=== PATIENT | male | born 1940 | race Caucasian/White ===

== ENCOUNTER → 2017-03-03 | Outpatient (CLI) | payer MEDICARE, OTHER ==
[~2017-03-03] MED LIST: ASP81TEC PO; BMSB30 PO; CLOP75TA PO; DICY20TA57 PO; FAMO20TA5 PO; FISH1CAP15 PO; HYDR1TAB PO; NITR0.4T12 SL; ONDA8TAB9 PO; RMP5C PO; SIMV20TA3 PO; SUSTENEX PO
--- NOTE | 2017-03-05 10:08 | ECHOCARDIOGRAPHY REPORT ---
PROCEDURE PHYSICIAN: BRONSON VALENZUELA DATE OF PROCEDURE: 03/03/2017 TWO DIMENSIONAL ECHOCARDIOGRAM REPORT PRIMARY PHYSICIAN: Dr. Taylor OTHER PHYSICIAN: Dr. Valenzuela REFERRING PHYSICIAN: ORDERING PHYSICIAN: Anjelica Mott APRN INDICATION FOR THE PROCEDURE: 1. Coronary artery disease. 2. Left bundle branch block MEASUREMENTS DERIVED VALUES LV DIAMETER (LAX) NORMALS NORMALS Diastolic 4.7 (3.6-5.2) Eject. Fract. (60%+/-6%) Systolic (2.3-3.9) Diastolic Vol. % Shortening (0.22-0.42) Systolic Vol. Aortic Root 3.2 IVS THICKNESS Diastolic 1 (0.6-1.1) LVPW THICKNESS Diastolic 1.1 (0.6-1.1) LA DIAMETER Systolic 3.9 (2.1-3.7) DESCRIPTION: Two-dimensional echocardiography shows well preserved global left ventricular systolic function with an ejection fraction of approximately 50%. There appears to be distal septal/localized apical hypokinesis. Aortic, mitral and tricuspid valve leaflets show good leaflet excursion. There is no significant pericardial effusion. Doppler imaging shows trivial, mitral and tricuspid regurgitation. There is no Doppler evidence of significant valvular stenosis. There appears to be mild aortic valve sclerosis and calcification. There is no Doppler evidence of any significant valvular stenosis. Pulmonary artery systolic pressure is estimated to be approximately 25 mmHg. Good subcostal views are not obtained. CONCLUSIONS: 1. Well preserved global left ventricular systolic function with an ejection fraction of approximately 50%. 2. Distal septal/apical localized hypokinesis. 3. Trivial to mild mitral and tricuspid regurgitation. 4. Mild aortic valve sclerosis without evidence of aortic stenosis. 5. Pulmonary artery systolic pressure is estimated approximately 25 mmHg. Job ID: [id number] Dictated Date: 03/04/2017 15:08:41 Power And Recovery Shift Engineer Date: 03/05/2017 10:02:36 / enio
== END ==
LOC: CARD 10:22
PROVIDERS: ATTEND Nurse Practitioner Family
DX: I25.10 Atherosclerotic heart disease of native coronary artery without angina pectoris (principal); I44.69 Other fascicular block; I65.23 Occlusion and stenosis of bilateral carotid arteries; R00.2 Palpitations
CPT/HCPCS: 93306

== ENCOUNTER → 2017-03-04 | Outpatient (CLI) | payer MEDICARE, OTHER ==
[~2017-03-04] VITALS: Ht 185.4 cm; Wt 94.3 kg
[~2017-03-04] MED LIST changes: +CATHETER FLUSH 10 ML SYR IV PRN; +REGADENOSON 0.4 MG/5 ML SYR (LEXISCAN) IV ONE; +meTOprolol 5 MG/5 ML (LOPRESSOR) VIAL IV ONE
[2017-03-04 09:23] VITALS: BP 116/74
[2017-03-04 09:37] VITALS: BP 127/70
[2017-03-04 09:39] VITALS: BP 146/77
[2017-03-04 09:41] VITALS: BP 132/88
--- NOTE | 2017-03-05 07:39 | STRESS TEST ---
PROCEDURE PHYSICIAN: BRONSON VALENZUELA DATE OF PROCEDURE: 03/04/2017 RESTING AND POST REGADENOSON TECHNETIUM 99M TETROFOSMIN SPECT CT IMAGING: ORDERING PHYSICIAN: Anjelica Mott APRN PRIMARY PHYSICIAN: Dr. Taylor. OTHER PHYSICIAN: Dr. Valenzuela CLINICAL DIAGNOSIS: 1. Coronary artery disease. 2. Left bundle branch block. Baseline images were carried out after injection of 10.7 mCi of technetium 99m tetrofosmin. This was followed by 0.4 mg of regadenoson and 28.9 mCi of technetium 99m tetrofosmin for stress imaging. The electrocardiogram showed sinus rhythm with left bundle branch block at baseline and it did not change significantly with the regadenoson infusion. He noted heavy feeling in the legs and abdominal cramping after regadenoson infusion, which resolved in a few minutes. Review of images at rest and following stress, indicates a small fixed apical perfusion defect. Gated images show a localized apical hypokinesis to akinesis. Left ventricular ejection fraction is calculated to be 52%. Left ventricular end-diastolic volume 92 mL. TID is absent (1.04). CONCLUSIONS: 1. The study indicates a small apical infarction without ischemia. 2. Localized apical hypokinesis to akinesis. 3. Well preserved global left ventricular systolic function and ejection fraction of 52%. Job ID: [id number] Dictated Date: 03/04/2017 13:44:35 Parts Room Clerk Date: 03/05/2017 07:36:00 / enio
== END ==
LOC: CARD 07:00
PROVIDERS: ATTEND Nurse Practitioner Family
DX: I25.10 Atherosclerotic heart disease of native coronary artery without angina pectoris (principal); I44.69 Other fascicular block; I65.23 Occlusion and stenosis of bilateral carotid arteries; R00.2 Palpitations
CPT/HCPCS: 78452; 93017

== ENCOUNTER → 2018-03-24 | Outpatient (CLI) | payer OTHER, MEDICARE ==
[~2018-03-24] MED LIST changes: +ACET325T49 PO; +ASPI-983 PO; +BISM262O27 PO; +CLOP75TA28 PO; +FAMO1TAB21 PO; +LORA10TA76 PO; +NAPR220T66 PO; +NITR0.4T39 SL; +OMG1KC PO; +RAMI2.5C PO; +RAMI5CAP PO; +SIMV10TA3 PO; -meTOprolol 5 MG/5 ML (LOPRESSOR) VIAL IV ONE
[2018-03-24 08:57] VITALS: BP 124/72
[2018-03-24 09:07] VITALS: BP 121/71
--- NOTE | 2018-03-25 13:56 | STRESS TEST ---
DATE OF SERVICE: 03/24/2018 RESTING AND POST REGADENOSON TECHNETIUM-99M TETROFOSMIN SPECT CT IMAGING ORDERING PHYSICIAN: CRISTIAN Foster. PRIMARY PHYSICIAN: Francesco Taylor DO. OTHER PHYSICIAN: Luis Valenzuela MD, MA, FACP, FACC. CLINICAL DIAGNOSES: Coronary artery disease, shortness of breath, and chest discomfort. Baseline images were carried out after injection of 10.85 mCi of technetium-99m Tetrofosmin. This was followed by 0.4 mg regadenoson and 30.4 mCi technetium-99m tetrofosmin for stress imaging. The electrocardiogram showed sinus rhythm with left bundle branch block. The electrocardiogram did not change significantly with the regadenoson infusion. Review of images at rest and following stress indicates an apical perfusion defect which is partially transient. There appears to be localized apical hypokinesis. Left ventricular ejection fraction is calculated to be 47%. Left ventricular end diastolic volume is 87 mL. TID is absent (1.1). CONCLUSIONS: 1. Apical infarction with a small to moderate amount of adela-infarct ischemia. 2. Apical hypokinesis. 3. Left ventricular ejection fraction is calculated to be 47%. Job ID: [id number] DocumentID: [id number] Dictated Date: 03/25/2018 08:37:09 Executive Director Date: 03/25/2018 13:55:28 Dictated By: LUIS VALENZUELA MD, MA, FACP, FACC,
== END ==
LOC: CARD 07:08
PROVIDERS: ATTEND Nurse Practitioner Family
DX: R06.02 Shortness of breath (principal); R07.89 Other chest pain
CPT/HCPCS: 78452; 93017

== ENCOUNTER 2018-04-07 07:55 | Day surgery (SDC) | payer MEDICARE, OTHER ==
[2018-04-07] VITALS (14 sets, daily range): BP systolic 106–150; BP diastolic 62–88
[~2018-04-07] VITALS: Ht 185.4 cm; Wt 98.9 kg
[~2018-04-07 07:55] MED LIST changes: -ACET325T49 PO; -ASPI-983 PO; -BISM262O27 PO; -CATHETER FLUSH 10 ML SYR IV PRN; -CLOP75TA28 PO; -FAMO1TAB21 PO; -LORA10TA76 PO; -NAPR220T66 PO; -NITR0.4T39 SL; -OMG1KC PO; -RAMI2.5C PO; -RAMI5CAP PO; -REGADENOSON 0.4 MG/5 ML SYR (LEXISCAN) IV ONE; -SIMV10TA3 PO
[2018-04-07] MEDS ORDERED: LIDOCAINE 1% INJ 20 ML 20 ML VIAL ONE (07:58)
[2018-04-07] MEDS ORDERED: NS IV 1000 ML 3,000 ML ONE (07:58)
[2018-04-07] MEDS ORDERED: NS IV 1000 ML 1,000 ML IV SCH (08:15)
[2018-04-07 08:37] LABS: HEMOGLOBIN 15.8 G/DL (13.3-17.7); MEAN PLATELET VOLUME 10.9 FL (7.4-10.4); RED BLOOD COUNT 4.85 10^6/uL (4.35-5.85); RED CELL DISTRIBUTION WIDTH 13.2 % (10.0-14.5); WHITE BLOOD COUNT 4.6 10^3/uL (4.3-11.0)
[2018-04-07] MEDS ORDERED: HEParin 1000 UNIT/ML (10ML VIAL) FOR BOLUS ONE (08:43)
[2018-04-07 08:47] LABS: INR 1.1 (0.8-1.4); PROTHROMBIN TIME PATIENT 14.1 SEC (12.2-14.7)
[2018-04-07] MEDS ORDERED: NAPR220T66 PO (08:53)
[2018-04-07] MEDS ORDERED: NITR0.4T39 SL (08:53)
[2018-04-07] MEDS ORDERED: BISM262O27 PO (08:53)
[2018-04-07] MEDS ORDERED: SIMV10TA3 PO (08:53)
[2018-04-07] MEDS ORDERED: FAMO1TAB21 PO (08:53)
[2018-04-07] MEDS ORDERED: LORA10TA76 PO (08:53)
[2018-04-07] MEDS ORDERED: RAMI5CAP PO (08:53)
[2018-04-07] MEDS ORDERED: ASPI-983 PO (08:53)
[2018-04-07] MEDS ORDERED: OMG1KC PO (08:53)
[2018-04-07 08:55] LABS: ALANINE AMINOTRANSFERASE 30 U/L (0-55); ALBUMIN 4.3 GM/DL (3.2-4.5); ALKALINE PHOSPHATASE 89 U/L (40-136); BILIRUBIN,TOTAL 0.8 MG/DL (0.1-1.0); BUN/CREATININE RATIO 21; CALCIUM 9.5 MG/DL (8.5-10.1); CARBON DIOXIDE 24 MMOL/L (21-32); CHLORIDE 106 MMOL/L (98-107); CHOLESTEROL 104 MG/DL (< 200); CREATININE SERUM 1.04 MG/DL (0.60-1.30); GFR ESTIMATED > 60; GLUCOSE 110 MG/DL (70-105); HDL CHOLESTEROL 38 MG/DL (40-60); POTASSIUM 4.2 MMOL/L (3.6-5.0); SODIUM 140 MMOL/L (135-145); TOTAL PROTEIN 7.1 GM/DL (6.4-8.2); TRIGLYCERIDES 62 MG/DL (<150); VLDL CHOLESTEROL 12 MG/DL (5-40)
[2018-04-07] MEDS ORDERED: RAMI2.5C PO (08:58)
[2018-04-07] MEDS ORDERED: diphenhydrAMINE 50 MG/ML INJ (BENADRYL) ONE (09:19)
[2018-04-07] MEDS ORDERED: MIDAZOLAM 5 MG/5 ML (VERSED) VIAL ONE (09:19)
[2018-04-07] MEDS ORDERED: fentaNYL INJECTION 100 MCG/2 ML AMP ONE (09:19)
[2018-04-07] MEDS ORDERED: EPTIFIBATIDE BOLUS 20 ML IV ONE (10:12)
[2018-04-07] MEDS ORDERED: NITRO DRIP 25000 MCG/D5W 250 ML IV ONE (10:17)
--- OUTSIDE RECORDS SUMMARY | 2018-04-07 10:29 | XMS REPORT | Continuity of Care Document ---
Author Author [facility] Organization [facility] Address Unknown Phone Unavailable Allergies Active Description Code Type Severity Reaction Onset Reported/Identified Relationship to Patient Clinical Status Yes NKANo Known Allergies NKA Miscellaneous Allergy Unknown N/A 08/28/2006 Yes Beta-Blockers (Beta-Adrenergic Bloc [id number] Drug Allergy Unknown N/A Medications There is no data. Problems Date Dx Coded Attending Type Code Diagnosis Diagnosed By 08/11/2012 Ot 272.4 HYPERLIPIDEMIA NEC/NOS 08/11/2012 Ot 414.01 CORONARY ATHEROSCLEROSIS OF [place] CORON 08/11/2012 Ot 426.3 LEFT BB BLOCK NEC 08/11/2012 Ot 433.10 CAROTID ARTERY OCCLUSION W O CEREBRAL IN 08/11/2012 Ot 719.41 JOINT PAIN- SHLDER 08/11/2012 Ot V45.82 PERCUTANEOUS TRANSLUM CORON ANGIOPLASTY 08/11/2012 Ot V58.63 LONG-TERM( CURRENT)USE OF ANTIPLATELET/AN 08/11/2012 Ot V58.66 LONG-TERM ( CURRENT) USE OF ASPIRIN 08/11/2012 Ot V58.69 OTH MED,LT, CURRENT USE 11/19/2012 Ot 574.20 CHOLELITHIASIS NOS 11/19/2012 Ot 789.01 ABDOMINAL PAIN, RIGHT UPPER QUADRANT 12/03/2012 Ot 574.10 CHOLELITH W CHOLECYS NEC 02/17/2015 BAIMA, LIZ L [employer] Ot 272.4 02/17/2015 BAIMA, LIZ L [employer] Ot 414.00 02/17/2015 BAIMA, LIZ L [employer] Ot 447.9 02/17/2015 BAIMA, LIZ L [employer] Ot 786.59 02/17/2015 BAIMA, LIZ L [employer] Ot V58.69 02/20/2015 BAIMA, LIZ L [employer] Ot 272.4 02/20/2015 BAIMA, LIZ L [employer] Ot 414.00 02/20/2015 BAIMA LIZ L [employer] Ot 272.4 02/20/2015 BAIMA, LIZ L [employer] Ot 414.00 02/20/2015 BAIMA, LIZ L [employer] Ot 272.4 02/20/2015 BAIMA, LIZ L [employer] Ot 414.00 06/28/2015 BAIMA, LIZ L [employer] Ot 272.4 06/28/2015 BAIMA, LIZ L [employer] Ot 414.00 07/12/2015 BAIMA, LIZ L [employer] Ot 272.4 07/12/2015 BAIMA, LIZ L [employer] Ot 414.00 07/28/2015 BAIMA, LIZ L [employer] Ot 272.4 07/28/2015 BAIMA, LIZ L [employer] Ot 414.00 10/07/2016 Ot 272.4 HYPERLIPIDEMIA NEC/NOS 10/07/2016 Ot 414.01 CORONARY ATHEROSCLEROSIS OF [place] CORON 10/07/2016 Ot V58.69 OTH MED,LT, CURRENT USE 10/07/2016 Ot 272.4 HYPERLIPIDEMIA NEC/NOS 10/07/2016 Ot 414.01 CORONARY ATHEROSCLEROSIS OF [place] CORON 10/07/2016 Ot V58.69 OTH MED,LT, CURRENT USE 10/07/2016 Ot 272.4 HYPERLIPIDEMIA NEC/NOS 10/07/2016 Ot 414.00 CORON ATHEROSCLER NOS TYPE VESSEL, NATIV 10/07/2016 Ot V58.69 OTH MED,LT, CURRENT USE 10/07/2016 Ot 412 OLD MYOCARDIAL INFARCT 10/07/2016 Ot 414.00 CORON ATHEROSCLER NOS TYPE VESSEL, NATIV 10/07/2016 Ot 719.41 JOINT PAIN- SHLDER 10/07/2016 Ot V45.82 PERCUTANEOUS TRANSLUM CORON ANGIOPLASTY 10/07/2016 Ot 414.00 CORON ATHEROSCLER NOS TYPE VESSEL, NATIV 10/07/2016 Ot 575.10 CHOLECYSTITIS, NOS 10/07/2016 Ot V72.63 PRE- PROCEDURAL LABORATORY EXAMINATION 10/07/2016 Ot V72.83 EXAM PRE- OPERATIVE NEC 10/07/2016 Ot V74.8 SCREEN- BACTERIAL DIS NEC 10/07/2016 Ot 272.4 HYPERLIPIDEMIA NEC/NOS 10/07/2016 Ot 414.00 CORON ATHEROSCLER NOS TYPE VESSEL, NATIV 10/07/2016 Ot V58.69 OTH MED,LT, CURRENT USE 10/07/2016 BAIMA, LIZ L [employer] INTER[employer] Ot 272.4 HYPERLIPIDEMIA NEC/NOS 10/07/2016 BAIMA, LIZ L [employer] Ot V58.69 OTH MED,LT,CURRENT USE 10/07/2016 GELLENDER DO, NICK A Ot 241.0 NONTOX UNINODULAR GOITER 10/07/2016 GELLENDER DO, NICK A Ot 241.0 NONTOX UNINODULAR GOITER 10/07/2016 GELLENDER DO, NICK A Ot 241.0 NONTOX UNINODULAR GOITER 10/07/2016 AZ FRANCES, CLAYTON Ot 553.21 INCISIONAL HERNIA 10/07/2016 AZ FRANCES, CLAYTON Ot V72.63 PRE-PROCEDURAL LABORATORY EXAMINATION 10/07/2016 AZ FRANCES, CLAYTON Ot V72.81 MBMD-GEB-[id number] CARDIOVASCULAR 10/07/2016 AZ FRANCES, CLAYTON Ot V72.83 EXAM PRE-OPERATIVE NEC 10/07/2016 AZ FRANCES, CLAYTON Ot V74.8 SCREEN-BACTERIAL DIS NEC 10/07/2016 JAMIEMA, LIZ L [employer] INTER[employer] Ot 272.4 HYPERLIPIDEMIA NEC/NOS 10/07/2016 JAMIEMA, LIZ L [employer] Ot V58.69 OTH MED,LT,CURRENT USE 10/07/2016 BAIMA, LIZ L [employer] Ot 790.5 ABN SERUM ENZY LEVEL NEC 10/07/2016 BAIMA, LIZ L [employer] Ot 790.5 ABN SERUM ENZY LEVEL NEC 10/07/2016 BAIMA, LIZ L [employer] Ot 272.4 HYPERLIPIDEMIA NEC/NOS 10/07/2016 BAIMA, LIZ L [employer] Ot 272.4 HYPERLIPIDEMIA NEC/NOS 10/07/2016 BAIMA, LIZ L [employer] Ot 414.00 CORON ATHEROSCLER NOS TYPE VESSEL, NATIV 10/07/2016 BAIMA, LIZ L [employer] Ot 272.4 HYPERLIPIDEMIA NEC/NOS 10/07/2016 BAIMA, LIZ L [employer] Ot 414.00 CORON ATHEROSCLER NOS TYPE VESSEL, NATIV 10/07/2016 BAIMA, LIZ L [employer] Ot 447.9 ARTERIAL DISEASE NOS 10/07/2016 BAIMA, LIZ L [employer] Ot 786.59 CHEST PAIN NEC 10/07/2016 BAIMA, LIZ L [employer] Ot V58.69 OTH MED,LT,CURRENT USE 10/07/2016 BAIMA, LIZ L [employer] Ot 272.4 HYPERLIPIDEMIA NEC/NOS 10/07/2016 BAIMA, LIZ L [employer] Ot 414.00 CORON ATHEROSCLER NOS TYPE VESSEL, NATIV 10/07/2016 BAIOSWALDO LIZ L [employer] INTER[employer]IP Ot 433.10 CAROTID ARTERY OCCLUSION W O CEREBRAL IN 10/07/2016 BAIOSWALDO LIZ L [employer] INTER[employer] Ot 786.59 CHEST PAIN NEC 10/07/2016 BAIMA LIZ L [employer] Ot 272.4 HYPERLIPIDEMIA NEC/NOS 10/07/2016 BAIMA LIZ L [employer] Ot 414.00 CORON ATHEROSCLER NOS TYPE VESSEL, NATIV 11/14/2016 WILLTEMI NICK DIAZ Ot S70.11XA CONTUSION OF RIGHT THIGH, INITIAL ENCOUN 11/14/2016 NICK GANDARA DO Ot W22.8XXA STRIKING AGAINST OR STRUCK BY OTHER OBJE 11/14/2016 NICK GANDARA DO Ot Y99.8 OTHER EXTERNAL CAUSE STATUS 03/05/2017 BETHANIE LIZ L [employer] INTER[employer] Ot I25.10 ATHSCL HEART DISEASE OF [place] CORONARY 03/05/2017 BETHANIE, LIZ L [employer] Ot I44.69 OTHER FASCICULAR BLOCK 03/05/2017 BAIMA, LIZ L [employer] Ot I65.23 OCCLUSION AND STENOSIS OF [place]AL [place] 03/05/2017 BAIMA, LIZ L [employer] Ot R00.2 PALPITATIONS 03/10/2017 JAMIEMA, LIZ L [employer] Ot I25.10 ATHSCL HEART DISEASE OF [place] CORONARY 03/10/2017 BAIMA, LIZ L [employer] Ot I44.69 OTHER FASCICULAR BLOCK 03/10/2017 BAIMA, LIZ L [employer] Ot I65.23 OCCLUSION AND STENOSIS OF [place]IL[place]AL [place] 03/10/2017 BAIMA, LIZ L [employer] Ot R00.2 PALPITATIONS 03/24/2017 BAIMA, LIZ L [employer] Ot I25.10 ATHSCL HEART DISEASE OF [place] CORONARY 03/24/2017 BAIMA, LIZ L [employer] Ot I44.69 OTHER FASCICULAR BLOCK 03/24/2017 BAIMA, LIZ L [employer] Ot I65.23 OCCLUSION AND STENOSIS OF [place]IL[place]AL [place] 03/24/2017 BAIMA, LIZ L [employer] INTER[employer] Ot R00.2 PALPITATIONS 03/24/2017 BAIMA, LIZ L [employer] INTERNS[employer] Ot I25.10 ATHSCL HEART DISEASE OF [place] CORONARY 03/24/2017 BAIMA, LIZ L [employer] INTER[employer] Ot I44.69 OTHER FASCICULAR BLOCK 03/24/2017 BAIMA, LIZ L [employer] INTERNS[employer] Ot I65.23 OCCLUSION AND STENOSIS OF [place] 03/24/2017 BAIMA, LIZ L [employer] INTER[employer] Ot R00.2 PALPITATIONS 04/01/2017 BAIMA, LIZ L [employer] Ot I25.10 ATHSCL HEART DISEASE OF [place] CORONARY 04/01/2017 BAIMA, LIZ L [employer] INTER[employer] Ot I44.69 OTHER FASCICULAR BLOCK 04/01/2017 BAIMA, LIZ L [employer] INTERNS[employer] Ot I65.23 OCCLUSION AND STENOSIS OF [place] 04/01/2017 BAIMA, LIZ L [employer] INTER[employer] Ot R00.2 PALPITATIONS 04/28/2017 BAIMA, LIZ L [employer] INTER[employer] Ot I25.10 ATHSCL HEART DISEASE OF [place] CORONARY 04/28/2017 BAIMA, LIZ L [employer] Ot I44.69 OTHER FASCICULAR BLOCK 04/28/2017 BAIMA, LIZ L [employer] INTER[employer] Ot I65.23 OCCLUSION AND STENOSIS OF [place] 04/28/2017 BAIMA, LIZ L [employer] INTER[employer] Ot R00.2 PALPITATIONS 04/29/2017 BAIMA, LIZ L [employer] INTER[employer] Ot I25.10 ATHSCL HEART DISEASE OF [place] CORONARY 04/29/2017 BAIMA, LIZ L [employer] INTER[employer] Ot I44.69 OTHER FASCICULAR BLOCK 04/29/2017 BAIMA, LIZ L [employer] INTER[employer] Ot I65.23 OCCLUSION AND STENOSIS OF [place] 04/29/2017 BAIMA, LIZ L [employer] Ot R00.2 PALPITATIONS 05/27/2017 BAIMA, LIZ L [employer] Ot I25.10 ATHSCL HEART DISEASE OF [place] CORONARY 05/27/2017 BAIMA, LIZ L [employer] Ot I44.69 OTHER FASCICULAR BLOCK 05/27/2017 BAIMA, LIZ L [employer] INTER[employer] Ot I65.23 OCCLUSION AND STENOSIS OF [place] 05/27/2017 BAIMA, LIZ L [employer] INTER[employer] Ot R00.2 PALPITATIONS 03/20/2018 Ot 414.00 CORON ATHEROSCLER NOS TYPE VESSEL, NATIV 03/20/2018 Ot 575.10 CHOLECYSTITIS, NOS 03/20/2018 Ot V72.63 PRE- PROCEDURAL LABORATORY EXAMINATION 03/20/2018 Ot V72.83 EXAM PRE- OPERATIVE NEC 03/20/2018 Ot V74.8 SCREEN- BACTERIAL DIS NEC 03/20/2018 Ot 272.4 HYPERLIPIDEMIA NEC/NOS 03/20/2018 Ot 414.00 CORON ATHEROSCLER NOS TYPE VESSEL, NATIV 03/20/2018 Ot V58.69 OTH MED,LT, CURRENT USE 03/20/2018 BAIMA, LIZ L [employer] INTER[employer] Ot 272.4 HYPERLIPIDEMIA NEC/NOS 03/20/2018 BAIMA, LIZ L [employer] Ot V58.69 OTH MED,LT,CURRENT USE 03/20/2018 GELLENDER DO, NICK A Ot 241.0 NONTOX UNINODULAR GOITER 03/20/2018 GELLENDER DO, NICK A Ot 241.0 NONTOX UNINODULAR GOITER 03/20/2018 GELLENDER DO, NICK A Ot 241.0 NONTOX UNINODULAR GOITER 03/20/2018 AZ FRANCES, CLAYTON Ot 553.21 INCISIONAL HERNIA 03/20/2018 CLAYTON BERNARDO MD Ot V72.63 PRE-PROCEDURAL LABORATORY EXAMINATION 03/20/2018 CLAYTON BERNARDO MD Ot V72.81 PNLE-[id number]-[id number] CARDIOVASCULAR 03/20/2018 CLAYTON BERNARDO MD Ot V72.83 EXAM PRE-OPERATIVE NEC 03/20/2018 CLAYTON BERNARDO MD Ot V74.8 SCREEN-BACTERIAL DIS NEC 03/20/2018 BAIMA, LIZ L [employer] INTER[employer] Ot 272.4 HYPERLIPIDEMIA NEC/NOS 03/20/2018 BAIMA, LIZ L [employer] Ot V58.69 OTH MED,LT,CURRENT USE 03/20/2018 BAIMA, LIZ L [employer] INTER[employer] Ot 790.5 ABN SERUM ENZY LEVEL NEC 03/20/2018 BAIMA, LIZ L [employer] Ot 790.5 ABN SERUM ENZY LEVEL NEC 03/20/2018 BAIMA, LIZ L [employer] Ot 272.4 HYPERLIPIDEMIA NEC/NOS 03/20/2018 BAIMA, LIZ L [employer] Ot 272.4 HYPERLIPIDEMIA NEC/NOS 03/20/2018 BAIMA, LIZ L [employer] Ot 414.00 CORON ATHEROSCLER NOS TYPE VESSEL, NATIV 03/20/2018 BAIMA, LIZ L [employer] Ot 272.4 HYPERLIPIDEMIA NEC/NOS 03/20/2018 BAIMA, LIZ L [employer] Ot 414.00 CORON ATHEROSCLER NOS TYPE VESSEL, NATIV 03/20/2018 BAIMA, LIZ L [employer] Ot 447.9 ARTERIAL DISEASE NOS 03/20/2018 BAIMA, LIZ L [employer] INTER[employer] Ot 786.59 CHEST PAIN NEC 03/20/2018 BAIMA, LIZ L [employer] Ot V58.69 OTH MED,LT,CURRENT USE 03/20/2018 BAIMA, LIZ L [employer] Ot 272.4 HYPERLIPIDEMIA NEC/NOS 03/20/2018 BAIMA, LIZ L [employer] Ot 414.00 CORON ATHEROSCLER NOS TYPE VESSEL, NATIV 03/20/2018 BAIMA, LIZ L [employer] Ot 433.10 CAROTID ARTERY OCCLUSION W O CEREBRAL IN 03/20/2018 BAIMA, LIZ L [employer] Ot 786.59 CHEST PAIN NEC 03/20/2018 BAIMA, LIZ L [employer] Ot 272.4 HYPERLIPIDEMIA NEC/NOS 03/20/2018 BAIMA, LIZ L [employer] Ot 414.00 CORON ATHEROSCLER NOS TYPE VESSEL, NATIV 03/20/2018 NICK GANDARA DO Ot S70.11XA CONTUSION OF RIGHT THIGH, INITIAL ENCOUN 03/20/2018 NICK GANDARA DO Ot W22.8XXA STRIKING AGAINST OR STRUCK BY OTHER OBJE 03/20/2018 NICK GANDARA DO Ot Y99.8 OTHER EXTERNAL CAUSE STATUS 03/20/2018 BETHANIE, LIZ L [employer] INTERNS[employer] Ot I25.10 ATHSCL HEART DISEASE OF [place] CORONARY 03/20/2018 BAIMA, LIZ L [employer] Ot I44.69 OTHER FASCICULAR BLOCK 03/20/2018 BAIMA, LIZ L [employer] INTER[employer] Ot I65.23 OCCLUSION AND STENOSIS OF [place] 03/20/2018 BAIMA, LIZ L [employer] Ot R00.2 PALPITATIONS 03/20/2018 BAIMA, LIZ L [employer] Ot I25.10 ATHSCL HEART DISEASE OF [place] CORONARY 03/20/2018 BAIMA, LIZ L [employer] Ot I44.69 OTHER FASCICULAR BLOCK 03/20/2018 BAIMA, LIZ L [employer] Ot I65.23 OCCLUSION AND STENOSIS OF [place] 03/20/2018 BAIMA, LIZ L [employer] Ot R00.2 PALPITATIONS 03/25/2018 BAIMA, LIZ L [employer] Ot R06.02 SHORTNESS OF BREATH 03/25/2018 BAIMA, LIZ L [employer] INTER[employer] Ot R07.89 OTHER CHEST PAIN Procedures There is no data. Results There is no data. Encounters ACCT No. Visit Date/Time Discharge Status Pt. Type Provider Facility Loc./Unit Complaint [id number] 03/24/2018 07:08:00 03/24/2018 23:59:59 CLS Outpatient BAIMA, LIZ L [employer] INTER[facility] CARD R06.02 SOB [id number] 03/04/2017 07:00:00 03/04/2017 23:59:59 CLS Outpatient BAIMA, LIZ L [employer] [facility] CARD CAD,LT BUNDLE BRANCH BLOCK,PALPITATIONS [id number] 03/03/2017 10:22:00 03/03/2017 23:59:59 CLS Outpatient BAIMA, LIZ L [employer] [facility] CARD CAD,LT BUNDLE BRANCH BLOCK,PALPITATIONS [id number] 10/07/2016 10:56:00 10/07/2016 23:59:59 CLS Outpatient NICK GANDARA DO [facility] RAD HEMATOMA RIGHT FEMUR DUE TO TRAUMA [id number] 06/05/2015 08:02:00 06/05/2015 23:59:59 CLS Outpatient BAIMA, LIZ L [employer] [facility] LAB CAD [id number] 02/20/2015 11:20:00 02/20/2015 23:59:59 CLS Outpatient BAIMA, LIZ L [employer] [facility] CARD CHEST DISCOMFORT, CAD [id number] 02/15/2015 07:58:00 02/15/2015 23:59:59 CLS Outpatient BAIMA, LIZ L [employer] [facility] CARD CHEST DISCOMFORT, CAD [id number] 12/05/2014 08:40:00 12/05/2014 23:59:59 CLS Outpatient BAIMA, LIZ L [employer] INTER[employer] [facility] LAB CAD,DYSLIPIADEMIA [id number] 06/06/2014 07:43:00 06/06/2014 23:59:59 CLS Outpatient BAIMA, LIZ L [employer] [facility] LAB DYSLIPIDEMA [id number] 01/19/2014 07:56:00 01/19/2014 23:59:59 CLS Outpatient BAIMA, LIZ L [employer] [facility] LAB ELEVATED LIVER ENZYMES [id number] 12/30/2013 09:22:00 12/30/2013 23:59:59 CLS Outpatient LIZ KOVACS [facility] LAB ELEVATED LIVER ENZ [id number] 12/07/2013 09:20:00 12/07/2013 23:59:59 CLS Outpatient LIZ KOVACS [facility] LAB HLP [id number] 12/06/2013 09:54:00 12/06/2013 23:59:59 CLS Outpatient CLAYTON BERNARDO MD [facility] PREOP INCISIONAL HERNIA [id number] 10/12/2013 08:14:00 10/12/2013 23:59:59 CLS Outpatient NICK GANDARA DO [facility] RAD COLD NODULE UPPER LEFT LOBE [id number] 09/28/2013 10:48:00 09/28/2013 23:59:59 CLS Outpatient NICK GANDARA DO [facility] RAD THYROID NODULE [id number] 09/22/2013 09:28:00 09/22/2013 23:59:59 CLS Outpatient NICK GANDARA DO [facility] RAD THYROID NODULE LT [id number] 06/07/2013 07:41:00 06/07/2013 23:59:59 CLS Outpatient LIZ KOVACS [facility] LAB HLP [id number] 04/07/2018 10:00:00 STEPHANIE RUCKER MD FACC, BRONSON VORA CCDS [facility] CATH ANGINA,SOB,FATIGUE,ABN STESS TEST [id number] 10/07/2016 10:58:00 Document Registration [id number] 12/03/2012 06:55:00 Document Registration [id number] 11/30/2012 09:11:00 Document Registration [id number] 11/30/2012 08:47:00 Document Registration [id number] 11/19/2012 16:58:00 Document Registration [id number] 08/11/2012 07:45:00 Document Registration [id number] 08/06/2012 07:21:00 Document Registration [id number] 06/09/2012 07:56:00 Document Registration [id number] 01/07/2012 07:51:00 Document Registration [id number] 07/09/2011 07:58:00 Document Registration
[2018-04-07] MEDS ORDERED: ASPIRIN 81 MG CHEW (CHILDREN'S ASA) ONE (10:49)
[2018-04-07] MEDS ORDERED: CLOPIDOGREL 300 MG (PLAVIX) TABLET PO ONE (10:49)
--- NOTE | 2018-04-07 11:01 | Cardiac Procedure Note-CS/ASA ---
Pre-Procedure Note Pre-Op Procedure Note H&P Reviewed The H&P was reviewed, patient examined and no changes noted. Date H&P Reviewed: April 07, 2018 Time H&P Reviewed: 10:00 Conscious Sedation Pre-Proced Time Reviewed: 10:00 ASA Class: 3 Airway Mallampati Classification: (three affiliated appropriate class) I. II. III, IV Lungs Heart ASA score ASA 1: a normal healthy patient ASA 2: a patient with a mild systemic disease (mid diabetes, controlled hypertension, obesity ASA 3: a patient with a severe systemic disease that limits activity (angina , COPD, prior Myocardial infarction) ASA 4: a patient with an incapacitating disease that is a constant threat to life (CHF, renal failure) ASA 5: a moribund patient not expected to survive 24 hrs. (ruptured aneurysm) ASA 6: a declared brain patient whose organs are being harvested. For emergent operations, add the letter E after the classification Grade 3 Sedation Plan: Analgesia, Amnesia, Plan communicated to team members, Discussed options with patient/fam, Discussed risks with patient/fam Note The patient is an appropriate candidate to undergo the planned procedure, sedation, and anesthesia. The patient immediately re-assessed prior to indication. BRONSON RUCKER MD FACP FAC CCDS April 07, 2018 11:01
[2018-04-07] MEDS ORDERED: NON-FORMULARY MEDICATION 1 EA EA (Naproxen Sodium (Aleve) 440 MG) PO PRN (11:15)
[2018-04-07] MEDS ORDERED: FAMOTIDINE PO PRN (11:15)
[2018-04-07] MEDS ORDERED: NON-FORMULARY MEDICATION 1 EA EA (Loratadine (Claritin) 10 MG) PO PRN (11:15)
[2018-04-07] MEDS ORDERED: CA CARB PO PRN (11:15)
[2018-04-07] MEDS ORDERED: ACETAMINOPHEN 325 MG TABLET/CAPLET (TYLENOL) PO PRN (11:15)
[2018-04-07] MEDS ORDERED: PATIENT MAY USE OWN MEDS, ALL PO SCH (11:15)
[2018-04-07] MEDS ORDERED: [UNRECOGNIZED DRUG - OTHER] PO PRN (11:15)
[2018-04-07] MEDS ORDERED: MAG HYDROX PO PRN (11:15)
[2018-04-07] MEDS ORDERED: NITROGLYCERIN 0.4 MG SL TABS BTL 25'S SL PRN (11:15)
[2018-04-07] MEDS: NS IV 1000 ML 1,000 ML IV SCH ×2 (12:05→21:58)
[2018-04-07] MEDS ORDERED: NAPROXEN 250 MG (NAPROSYN) TABLET PO PRN (12:30)
[2018-04-07] MEDS ORDERED: FAMOTIDINE 20 MG (PEPCID) TABLET PO PRN (12:30)
[2018-04-07] MEDS ORDERED: LORATADINE (CLARITIN) 10 MG TAB PO PRN (12:30)
--- NOTE | 2018-04-07 13:24 | CARDIAC CATHETERIZATION ---
DATE OF SERVICE: 04/07/2018 CARDIAC CATHETERIZATION AND CORONARY INTERVENTION HISTORY: The patient is a 77-year-old man with a history of coronary artery disease and multiple coronary interventions. He recently had a myocardial perfusion imaging study, which indicated apical infarction with considerable adela-infarct ischemia. Cardiac catheterization was carried out after having obtained an informed consent for cardiac catheterization and possible ad-hoc coronary intervention. PROCEDURE: He was brought to the cardiac catheterization laboratory in a fasting state. Right groin was prepared and draped in the usual sterile fashion. Lidocaine 1% infused for local anesthesia. Modified Seldinger technique was used to advance a 5-Mongolian sheath in the right femoral artery, 5-Mongolian JL4 catheter for left coronary angiography and 5-Mongolian JR4 catheter for right coronary angiography, 5-Mongolian pigtail catheter for his left heart catheterization and left ventricular angiography. Angiography of the right femoral artery was carried out through the sheath at the time of sheath deployment. PERCUTANEOUS INTERVENTION OF THE LEFT ANTERIOR DESCENDING ARTERY: The left anterior descending artery was found to be occluded within a mid vessel stent. We exchanged the sheath over a wire for a 6-Mongolian sheath. We gave 6000 units of intravenous heparin. A double bolus of Integrilin was given and Integrilin infusion was continued throughout the procedure. We exchanged the sheath over a wire for a 6-Mongolian sheath and used a 6-Mongolian JL3.5 guide catheter to engage the left coronary artery and advanced a ChoICE floppy wire across the lesions with moderate difficulty. The tip was placed in the distal vessel. We then carried out balloon angioplasty within 99% in-stent restenosis. We used an Emerge 2.0 x 30 mm balloon. Multiple balloon inflations were carried out. This reduced the stenosis from 99% with HORTENCIA 2 antegrade flow to less than 30% residual stenosis with HORTENCIA-3 antegrade flow. He tolerated the procedure well. At the end of the procedure, following removal of the angioplasty equipment and the sheath, Mynx was used to achieve hemostasis. He was transferred to the cardiac catheterization laboratory in a stable condition. HEMODYNAMICS: Left ventricular end-diastolic pressure following coronary angiography was 9 mmHg. There was no significant pressure gradient on pullback across the aortic valve. Ascending aortic pressure was 128/76 with a mean of 54 mmHg. LEFT VENTRICULAR ANGIOGRAPHY: Left ventricular angiography was carried out in the right anterior oblique projection. Global left ventricular systolic function is well preserved. Left ventricular ejection fraction is approximately 55%. There is anterolateral and apical hypokinesis. There does not appear to be significant mitral regurgitation. CORONARY ANGIOGRAPHY: Left main coronary artery does not exhibit significant disease. Left anterior descending artery had 99% stenosis within the mid vessel stenosis with HORTENCIA 2 antegrade flow. Following balloon angioplasty, in-stent restenosis is reduced to less than 30% with HORTENCIA 3 antegrade flow. The left circumflex artery has a patent stent in its proximal portion. The right coronary artery is dominant with a patent stent in its mid portion. The proximal right coronary artery has a long 50% stenosis. CONCLUSIONS: 1. Coronary artery disease primarily consisting of 99% stenosis in the mid left anterior descending artery stent to which successful balloon angioplasty was carried out with reduction of stenosis to less than 30% and yarsani of normal antegrade flow. The stents in the proximal left circumflex and the mid right coronary artery are patent. The right coronary artery has moderate proximal disease. 2. Well-preserved global left ventricular systolic function with ejection fraction of 55%. 3. Anterolateral and apical hypokinesis. 4. No significant mitral regurgitation. 5. Normal left ventricular end diastolic pressure. DISCUSSION AND RECOMMENDATIONS: Plavix has been added to the regimen. Aspirin is being continued. Risk factor modification has been reviewed. He is being hospitalized for overnight observation after today's intervention procedure. Job ID: [id number] DocumentID: [id number] Dictated Date: 04/07/2018 10:56:37 Manager Merchandise Date: 04/07/2018 13:24:12 Dictated By: BRONSON RUCKER MD, MA, FACP, FACC, MTDD
[2018-04-07] MEDS ORDERED: SIMvastatin 10 MG (ZOCOR) TAB PO SCH (21:00)
[2018-04-08 00:18] VITALS: BP 111/66
[2018-04-08 03:40] VITALS: BP 115/72
[2018-04-08 03:47] LABS: HEMOGLOBIN 14.4 G/DL (13.3-17.7); MEAN PLATELET VOLUME 11.6 FL (7.4-10.4); RED BLOOD COUNT 4.4 10^6/uL (4.35-5.85); WHITE BLOOD COUNT 5.1 10^3/uL (4.3-11.0)
[2018-04-08 04:12] LABS: BUN/CREATININE RATIO 24; CALCIUM 8.7 MG/DL (8.5-10.1); CARBON DIOXIDE 21 MMOL/L (21-32); CHLORIDE 109 MMOL/L (98-107); CREATININE SERUM 0.83 MG/DL (0.60-1.30); GFR ESTIMATED > 60; GLUCOSE 101 MG/DL (70-105); POTASSIUM 4.1 MMOL/L (3.6-5.0); SODIUM 139 MMOL/L (135-145)
[2018-04-08] MEDS: NS IV 1000 ML 1,000 ML IV SCH (05:00)
[2018-04-08 08:10] VITALS: BP 132/65
[2018-04-08] MEDS ORDERED: CLOPIDOGREL 75 MG (PLAVIX) TABLET PO SCH (09:00)
[2018-04-08] MEDS ORDERED: ASPIRIN E.C. 81 MG (ECOTRIN) TAB PO SCH (09:00)
[2018-04-08] MEDS ORDERED: OMEGA 3 (FISH OIL) 1000 MG CAP PO SCH (09:00)
[2018-04-08] MEDS ORDERED: ASPIRIN 81 MG CHEW (CHILDREN'S ASA) PO SCH (09:00)
[2018-04-08] MEDS ORDERED: RAMIPRIL 2.5 MG (ALTACE) CAP PO SCH ×2 (09:00)
--- NOTE | 2018-04-08 11:23 | Progress Note-Cardiology ---
Cardiology SOAP Progress Note Subjective: Feels well today. No cp or shortness of breath or groin discomfort or palp or syncope. Wishes to go home Objective: I&O/Vital Signs 04/08/18 04/08/18 04/08/18 04/08/18 00:18 01:00 03:40 07:00 Temp 98.6 98.2 Pulse 50 60 52 57 Resp 16 16 B/P (MAP) 111/66 (81) 115/72 (86) Pulse Ox 97 94 O2 Delivery Room Air Room Air 04/08/18 04/08/18 08:10 09:00 Temp 97.8 Pulse 58 Resp 14 B/P (MAP) 132/65 (87) Pulse Ox 97 O2 Delivery Room Air Room Air 04/08/18 00:00 Intake Total 480 ml Balance 480 ml Weight (Pounds): 218 Weight (Ounces): 0.0 Weight (Calculated Kilograms): 98.252813 Groin site without hematoma: Yes Bruising: mild bruising Constitutional: AAO x 3, well-developed, well-nourished Respiratory: No accessory muscle use; lungs clear to percussion, lungs clear to auscultation Cardiovascular: regular rate-rhythm, S1 and S2, systolic murmur (soft AMRIT at card base) Gastrointestional: No tender; soft; No guarding, No rebound; audible bowel sounds Extremities: No clubbing, No cyanosis, No significant edema Neurologic/Psychiatric: oriented x 3, grossly intact, power is 5/5 both on sides Skin: No rash on exposed areas, No ulcerations on exposed areas Results/Procedures: Labs Laboratory Tests 04/08/18 03:20: White Blood Count 5.1, Red Blood Count 4.40, Hemoglobin 14.4, Hematocrit 42, Mean Corpuscular Volume 94, Mean Corpuscular Hemoglobin 33, Mean Corpuscular Hemoglobin Concent 35, Red Cell Distribution Width 13.0, Platelet Count 118L, Mean Platelet Volume 11.6H, Sodium Level 139, Potassium Level 4.1, Chloride Level 109H, Carbon Dioxide Level 21, Anion Gap 9, Blood Urea Nitrogen 20H, Creatinine 0.83, Estimat Glomerular Filtration Rate > 60, BUN/Creatinine Ratio 24, Glucose Level 101, Calcium Level 8.7 Laboratory Tests 04/07/18 08:28 04/08/18 03:20 A/P: Assessment: CAD. Last card cath on 04/07/18 following abnormal MPI on 03/24/18 (anteroapical OH with considerable periinfarct ischemia): 99% stenosis in the mid left anterior descending artery stent to which successful balloon angioplasty was carried out with reduction of stenosis to less than 30% and orthodoxy of normal antegrade flow. The stents in the proximal left circumflex and the mid right coronary artery are patent. The right coronary artery has moderate proximal disease. Well-preserved global left ventricular systolic function with ejection fraction of 55%. Anterolateral and apical hypokinesis. No significant mitral regurgitation. Normal left ventricular end diastolic pressure. History of rate-related left bundle branch block. Well preserved global left ventricular systolic function with an ejection fraction of 50 to 55%, normal left ventricular end-diastolic pressure per cardiac catheterization of July 2012 Echo of February 2017 showed LVEF 50% and distal septal/apical hypokinesis; there was trivial to mild MR & TR; mild aortic valve sclerosis without evidence of aortic stenosis. PASP was 25 mmHg Impaired fasting glucose which is being followed by Dr Taylor Intolerance to beta blockers on account of symptomatic bradycardia. Dyslipidemia, controlled on therapy with simvastatin. Dr Taylor following Mild liver enzyme elevation being managed by Dr Taylor Mild carotid arterial disease without evidence of hemodynamically significant stenosis, per bilateral carotid ultrasound of April 2016 Incidentally found thyroid nodule on carotid u/s of Aug 2013. He's since had it removed and states it was benign and is being followed by Dr Taylor. Status post right femur, right tibia, and left shoulder AC separation. He has an intramedulary nail fixation of the right lower extremity carried out by Dr. Varma in 2010, with subsequent infection that was fully treated with antibiotics by Dr Varma and Dr Taylor. Basal cell carcinoma to his chin which is being followed per Dr. Bingham Cholecystectomy per Dr. Bingham in 2012. No evidence of AAA per scan of April 2017 Plan: * I reviewed and discussed in detail with him and his his card findings and interventions undertaken and further treatment plan * We recommended cor risk factor mod and discussed it * We have advised close clinical f/u for now * Plavix has been added to the regimen * We discussed the symptoms of cor stent restenosis/cor ischemia BRONSON RUCEKR MD FACP FAC CCDS April 08, 2018 11:23
[2018-04-08] MEDS ORDERED: CLOP75TA28 PO (11:27)
[2018-04-08] MEDS ORDERED: ACET325T49 PO (11:27)
--- NOTE | 2018-04-08 11:29 | Discharge Inst-Post CATH ---
Discharge Inst-CATH Post Cardiac Cath D/C Inst Follow Up/Plan F/u with Dr Valenzuela in 2 weeks CARDIAC CATH DISCHARGE INSTRUCTIONS *Hold Metformin for 48 hours post heart cath. ACTIVITY * Go Home directly and rest. * Limit activity of the leg (or wrist if it was used) for 7 days including aerobics, swimming, jogging, bicycling, etc. * Restrict stair-climbing for 7 days if possible, if not, climb up with your non -cath leg, then bring together on the same step. * Avoid lifting, pushing, pulling or excessive movement of the affected extremity for 7 days. * Customary sexual activity may be resumed after 2 days-use caution not to use a position that strains or causes pain to the affected extremity. * No driving for 24 hours. * NO SMOKING. * Avoid straining for bowel movements for 7 days. * Gentle walking on level ground is allowed. * Returning to work will depend on the type of procedure and the results. Your doctor will discuss this with you. CALL YOUR DOCTOR FOR ANY OF THE FOLLOWING: *If bleeding from the puncture site occurs- Apply gentle pressure to site with clean cloth and call your doctor or EMS. * If a knot or lump forms under the skin, increases in size, or causes pain. * If bruising appears to be worsening or moving further down your leg instead of disappearing. * Temperature above 101 F. CARE OF YOUR GROIN INCISION; * Bruising or purple discoloration of the skin near the puncture site is common. * You may shower only, no bathtub bathing for 5 days. Be careful to avoid slipping as your leg may feel stiff. * If a closure device was used on your femoral artery, please see the attached guide regarding care of the device and your leg. * REMOVE the dressing from your groin the next day after your procedure in the shower. CARE OF YOUR WRIST INCISION; * Bruising or purple discoloration of the skin near the puncture site is common. * You may shower. * DO NOT submerge wrist. * Remove dressing in 24 hours. BRONSON VALENZUELA MD FACP FAC CCDS April 08, 2018 11:29
--- NOTE | 2018-04-08 11:29 | Discharge Inst-Cardiology ---
Discharge Inst-Cardiac Discharge Medications New Medications: Acetaminophen (Acetaminophen) 325 Mg Tablet 650 MG PO Q6HR PRN for PAIN-MILD for 30 Days, #100 TAB 1 Refill Clopidogrel Bisulfate (Clopidogrel) 75 Mg Tablet 75 MG PO DAILY for 90 Days, #90 TAB 3 Refills Continued Medications: Aspirin (Aspirin EC) 81 Mg Tablet.dr 81 MG PO HS, TAB Bismuth Subsalicylate (Pepto-Bismol) 262 Mg/15 Ml Oral.susp PO UD PRN for STOMACH UPSET, ML Famotidine/Ca Carb/Mag Hydrox (Pepcid Complete Tablet Chew) 1 Each Tab.chew 1 TAB.CHEW PO DAILY PRN for INDIGESTION, TAB Loratadine (Claritin) 10 Mg Tablet 10 MG PO DAILY PRN for ALLERGIES, TAB Nitroglycerin (Nitroglycerin) 0.4 Mg Tab.subl 0.4 MG SL UD PRN for CHEST PAIN, TAB [place] 3 Polyunsat Fatty Acids (Fish Oil 1,000 mg Capsule) 1,000 Mg Cap 1000 MG PO DAILY, CAP Ramipril (Ramipril) 2.5 Mg Capsule 2.5 MG PO DAILY, CAP Simvastatin (Simvastatin) 10 Mg Tablet 5 MG PO HS, TAB TAKES 1/2 (10MG) TABLET Discontinued Medications: Naproxen Sodium (Aleve) 220 Mg Tablet 440 MG PO Q8H PRN for PAIN-MILD, TAB BRONSON RUCKER MD FACP FAC CCDS April 08, 2018 11:28
[2018-04-08 12:30] VITALS: BP 132/65
== END 2018-04-08 12:30 | disposition home or self-care (01) ==
LOC: CATH 07:55 → ICU 11:20 → CATH 04-08 12:30
PROVIDERS: ATTEND Internal Medicine Cardiovascular Disease
DX: T82.855A Stenosis of coronary artery stent, initial encounter (principal); I25.10 Atherosclerotic heart disease of native coronary artery without angina pectoris; E78.5 Hyperlipidemia, unspecified; R73.02 Impaired glucose tolerance (oral); R74.8 Abnormal levels of other serum enzymes; Z79.82 Long term (current) use of aspirin; Z79.899 Other long term (current) drug therapy
CPT/HCPCS: 36415; 80048; 80053; 80061; 85027; 85610; 85730; 87081; 93005; 93458

== ENCOUNTER → 2020-06-06 | Outpatient (CLI) | payer MEDICARE ==
[~2020-06-06] MED LIST changes: +ACET325T49 PO; +ASPI-983 PO; +BISM262O27 PO; +CLOP75TA28 PO; +FAMO1TAB21 PO; +LORA10TA76 PO; +NAPR220T66 PO; +NITR0.4T39 SL; +OMG1KC PO; +RAMI2.5C2 PO; +RAMI5CAP65 PO; +SIMV10TA26 PO
== END ==
LOC: CARD 13:44
PROVIDERS: ATTEND Nurse Practitioner Family
DX: I25.10 Atherosclerotic heart disease of native coronary artery without angina pectoris (principal); I44.7 Left bundle-branch block, unspecified; I65.23 Occlusion and stenosis of bilateral carotid arteries; E78.5 Hyperlipidemia, unspecified; I51.89 Other ill-defined heart diseases
CPT/HCPCS: 93306

== ENCOUNTER → 2020-06-09 | Outpatient (CLI) | payer MEDICARE ==
[~2020-06-09] VITALS: Ht 185 cm; Wt 100.0 kg
[~2020-06-09] MED LIST changes: +CATHETER FLUSH 10 ML SYR IV PRN; +REGADENOSON 0.4 MG/5 ML SYR (LEXISCAN) IV ONE
[2020-06-09 08:39] VITALS: BP 119/72
--- NOTE | 2020-06-13 13:09 | CARDIAC CATHETERIZATION ---
DATE OF SERVICE: 06/09/2020 RESTING AND POST REGADENOSON TECHNETIUM-99M TETROFOSMIN SPECT CT IMAGING ORDERING PHYSICIAN: Anjelica Mott APRN. PRIMARY CARE PHYSICIAN: Dr. Taylor. CLINICAL DIAGNOSES: Coronary artery disease, hyperlipidemia and left bundle branch block. Baseline images were carried out after injection of 10.93 mCi of technetium-99m Tetrofosmin. This was followed by 0.4 mg Regadenoson and 32.1 mCi of technetium-99m Tetrofosmin for stress imaging. The electrocardiogram showed sinus rhythm with left bundle branch block and it did not change significantly with the Regadenoson infusion. Review of images at rest and following stress indicates a small predominantly fixed apical perfusion defect. Gated images show well preserved global left ventricular systolic function. There appears to be localized apical hypokinesis to akinesis. Left ventricular ejection fraction is calculated to be 58%. Left ventricular end diastolic volume is 87 mL. TID is absent (0.99). CONCLUSIONS: 1. This study is indicative of a small apical infarction with minimal adela-infarct ischemia. 2. Localized apical hypokinesis to akinesis. 3. Well preserved global left ventricular systolic function with an ejection fraction of 58%. Job ID: [id number] DocumentID: [id number] Dictated Date: 06/13/2020 13:02:08 Day Care Aide Date: 06/13/2020 13:08:45 Dictated By: BRONSON RUCKER MD, MA, FACP, FACC,
== END ==
LOC: CARD 06:43
PROVIDERS: ATTEND Nurse Practitioner Family
DX: I25.10 Atherosclerotic heart disease of native coronary artery without angina pectoris (principal); I77.89 Other specified disorders of arteries and arterioles; E78.5 Hyperlipidemia, unspecified; I44.7 Left bundle-branch block, unspecified
CPT/HCPCS: 78452; 93017; A9502

== ENCOUNTER → 2020-08-24 | Outpatient (CLI) | payer MEDICARE ==
[~2020-08-24] MED LIST changes: +ASPI-1238 PO; -ASPI-983 PO; -CATHETER FLUSH 10 ML SYR IV PRN; -REGADENOSON 0.4 MG/5 ML SYR (LEXISCAN) IV ONE
--- NOTE | 2020-08-24 12:11 | Diagnostic Imaging Report ---
INDICATION: Right thigh pain and numbness. TIME OF EXAM: 10:00 a.m. COMPARISON: Correlation is made with prior radiograph from 10/07/2016. FINDINGS: Intramedullary jin as well as compression screw transfixes the right femur. The hardware appears to be intact. No fracture or loosening is seen. A large amount of callus as well as heterotopic ossification along the medial aspect of the proximal left femur is again noted and unchanged. Bony structures are intact. IMPRESSION: Chronic and postsurgical changes, stable when compared with exam from September 2016. No acute feature is detected. Dictated by: Dictated on workstation # [id number]
== END ==
LOC: RAD 09:34
PROVIDERS: ATTEND Family Medicine
DX: M79.651 Pain in right thigh (principal); R20.0 Anesthesia of skin; Z98.890 Other specified postprocedural states
CPT/HCPCS: 73552

== ENCOUNTER 2022-02-26 06:44 | Day surgery (SDC) | payer MEDICARE ==
[2022-02-26] VITALS (10 sets, daily range): BP systolic 123–162; BP diastolic 70–84
[~2022-02-26] VITALS: Ht 185.4 cm; Wt 101.2 kg
[~2022-02-26 06:44] MED LIST changes: -RAMI2.5C2 PO; +RAMI2.5C54 PO
[2022-02-26] MEDS ORDERED: HEParin (CATH LAB) 2,000 ML IV ONE (06:59)
[2022-02-26] MEDS ORDERED: NS IV 1000 ML 1,000 ML ONE (06:59)
[2022-02-26] MEDS ORDERED: LIDOCAINE 1% INJ 50 ML (XYLOCAINE) VIAL ONE (06:59)
[2022-02-26] MEDS ORDERED: NS IV 1000 ML 1,000 ML IV SCH ×2 (07:15→10:45)
[2022-02-26 07:32] LABS: HEMATOCRIT 49 % (40-54); HEMOGLOBIN 16.3 g/dL (13.3-17.7); MEAN CORPUSCULAR HEMOGLOBIN 32 pg (25-34); MEAN CORPUSCULAR HGB CONC 34 g/dL (32-36); MEAN CORPUSCULAR VOLUME 96 fL (80-99); MEAN PLATELET VOLUME 10.7 fL (9.0-12.2); PLATELET COUNT 159 10^3/uL (130-400)
[2022-02-26] MEDS ORDERED: CETI10TA17 PO (07:44)
[2022-02-26 07:46] LABS: PROTHROMBIN TIME PATIENT 13.9 SEC (12.2-14.7)
[2022-02-26 07:57] LABS: ALBUMIN 4.2 GM/DL (3.2-4.5); BILIRUBIN,TOTAL 0.8 MG/DL (0.1-1.0); CALCIUM 9.1 MG/DL (8.5-10.1); CREATININE SERUM 1.18 MG/DL (0.60-1.30); POTASSIUM 3.9 MMOL/L (3.6-5.0); TOTAL PROTEIN 7.4 GM/DL (6.4-8.2)
[2022-02-26] MEDS ORDERED: MIDAZOLAM 5 MG/5 ML (VERSED) VIAL ONE (09:22)
[2022-02-26] MEDS ORDERED: fentaNYL INJ 100 MCG/2 ML AMP ONE (09:22)
--- NOTE | 2022-02-26 10:33 | Cardiac Procedure Note-CS/ASA ---
Pre-Procedure Note Pre-Op Procedure Note H&P Reviewed The H&P was reviewed, patient examined and no changes noted. Date H&P Reviewed: Feb 26, 2022 Time H&P Reviewed: 10:00 Conscious Sedation Pre-Proced Time 10:00 ASA Score 3 For ASA 3 and 4: Consider anesthesia and medical clearance. Also, for patients with a history of failed moderate sedation consider anesthesia. Airway Lungs Heart ASA score ASA 1: a normal healthy patient ASA 2: a patient with a mild systemic disease (mid diabetes, controlled hypertension, obesity ASA 3: a patient with a severe systemic disease that limits activity (angina, COPD, prior Myocardial infarction) ASA 4: a patient with an incapacitating disease that is a constant threat to life (CHF, renal failure) ASA 5: a moribund patient not expected to survive 24 hrs. (ruptured aneurysm) ASA 6: a declared brain- patient whose organs are being harvested. For emergent operations, add the letter E after the classification Mallampati Classification Grade 2 Sedation Plan Analgesia, Amnesia, Plan communicated to team members, Discussed options with patient/fam, Discussed risks with patient/fam The patient is an appropriate candidate to undergo the planned procedure, sedation, and anesthesia. The patient immediately re-assessed prior to indication. BRONSON RUCKER MD FACP FAC CCDS Feb 26, 2022 10:33
--- NOTE | 2022-02-26 10:43 | Discharge Inst-Cardiology ---
Discharge Inst-Cardiac Discharge Medications Continued Medications: Acetaminophen (Acetaminophen) 325 Mg Tablet 650 MG PO Q6HR PRN for PAIN-MILD for 30 Days, #100 TAB 1 Refill Aspirin (Aspirin EC) 81 Mg Tablet.dr 81 MG PO HS, TAB Cetirizine HCl (Cetirizine HCl) 10 Mg Tablet 10 MG PO DAILY PRN for allergies, TAB Clopidogrel Bisulfate (Clopidogrel) 75 Mg Tablet 75 MG PO DAILY for 90 Days, #90 TAB 3 Refills Nitroglycerin (Nitroglycerin) 0.4 Mg Tab.subl 0.4 MG SL UD PRN for CHEST PAIN, TAB [place] 3 Polyunsat Fatty Acids (Fish Oil 1,000 mg Capsule) 1,000 Mg Cap 2000 MG PO BID, CAP Ramipril (Ramipril) 2.5 Mg Capsule 2.5 MG PO DAILY, CAP Simvastatin (Simvastatin) 10 Mg Tablet 5 MG PO HS, TAB TAKES 1/2 (10MG) TABLET BRONSON RUCKER MD FACP [facility] CCDS Feb 26, 2022 10:43
--- NOTE | 2022-02-26 10:44 | Discharge Inst-Post CATH ---
Discharge Inst-CATH/EP Post Cardiac Cath/EP D/C Inst Follow Up/Plan F/u with Dr Valenzuela 2 weeks F/u with Dr Whyte for eval for bypass surgery next week <b>CARDIAC CATH/EP PROCEDURE DISCHARGE INSTRUCTIONS</b> ACTIVITY * Go Home directly and rest. * Limit activity of the leg (or wrist if it was used) for 7 days including aerobics, swimming, jogging, bicycling, etc. * Restrict stair-climbing for 7 days if possible, if not, climb up with your non-cath leg, then bring together on the same step. * Avoid lifting, pushing, pulling or excessive movement of the affected extremity for 7 days. * Customary sexual activity may be resumed after 2 days-use caution not to use a position that strains or causes pain to the affected extremity. * No driving for 24 hours. * NO SMOKING. * Avoid straining for bowel movements for 7 days. * Gentle walking on level ground is allowed. * Returning to work will depend on the type of procedure and the results. Your doctor will discuss this with you. CALL YOUR DOCTOR FOR ANY OF THE FOLLOWING: *If bleeding from the puncture site occurs- Apply gentle pressure to site with clean cloth and call your doctor or EMS. * If a knot or lump forms under the skin, increases in size, or causes pain. * If bruising appears to be worsening or moving further down your leg instead of disappearing. * Temperature above 101 F. CARE OF YOUR GROIN INCISION; * Bruising or purple discoloration of the skin near the puncture site is common. * You may shower only, no bathtub bathing for 5 days. Be careful to avoid slipping as your leg may feel stiff. * If a closure device was used on your femoral artery, please see the attached guide regarding care of the device and your leg. * Leave dressing on FOR 24 hours. CARE OF YOUR WRIST INCISION; * Bruising or purple discoloration of the skin near the puncture site is common. * You may shower. * DO NOT submerge wrist. * Leave dressing on FOR 24 hours. BRONSON VALENZUELA MD FACP [facility] CCDS Feb 26, 2022 10:44
[2022-02-26] MEDS ORDERED: PATIENT MAY USE OWN MEDS, ALL PO SCH (10:45)
--- NOTE | 2022-02-26 11:15 | CARDIAC CATHETERIZATION ---
DATE OF SERVICE: 02/26/2022 CARDIAC CATHETERIZATION REPORT INDICATION FOR PROCEDURE: The patient is an 81-year-old gentleman, who is known to have coronary artery disease and has previously had multiple percutaneous coronary interventions. Over the last several months, he has had recurrence of stable angina, which occurs with exertion and is relieved with rest. Repeat cardiac catheterization was carried out after having obtained an informed consent. DESCRIPTION OF PROCEDURE: He was brought to the cardiac catheterization laboratory in a fasting state. Right groin was prepared and draped in the usual sterile fashion. Lidocaine 1% was used as local anesthesia. Modified Seldinger technique was used to advance a 5-German sheath in the right femoral artery, 5-German JL4 catheter for left angiography, 5-German JR4 catheter for right coronary angiography, 5-German pigtail catheter was used for left heart catheterization, and left ventricular angiography. At the end of the procedure, angiography of the right femoral artery was carried out through the sheath. The site of sheath insertion did not appear to be suitable for Mynx. Manual pressure was used to achieve hemostasis. He tolerated the procedure well. HEMODYNAMICS: Left ventricular end-diastolic pressure following coronary angiography was 18 mmHg. There was no significant pressure gradient on pullback across the aortic valve. LEFT VENTRICULAR ANGIOGRAPHY: Left ventricular angiography was carried out in the FELIPE projection. Left ventricular ejection fraction is 50% to 55%. There appears to be mild anteroapical hypokinesis. CORONARY ANGIOGRAPHY: Diffuse coronary calcification is seen. Left main coronary artery is free of significant disease. Left anterior descending artery has a stent in its mid portion that exhibits approximately 80% in-stent restenosis. The left circumflex artery has approximately 80% mid vessel stenosis and it then bifurcates into two large branches. A patent stent is seen in the second obtuse marginal branch of the left circumflex. Just after the origin of the second obtuse marginal branch, the left circumflex artery has another 80% stenosis. The right coronary artery is dominant. It has 60% to 70% proximal stenosis. Distal stenosis appears to be partly within a previously placed stent. CONCLUSIONS: 1. Multivessel coronary artery disease including 80% in-stent restenosis in the mid left anterior descending, tandem 80% stenoses in the mid left circumflex, and 60% to 70% proximal stenosis in the proximal portion of the dominant right coronary. 2. Well preserved global left ventricular systolic function with an ejection fraction of 50% to 55%. 3. Mild anterolateral and apical hypokinesis. 4. Mild elevation of left ventricular end-diastolic pressure. DISCUSSION AND RECOMMENDATIONS: Based on the results of this cardiac catheterization, it appears that coronary artery bypass surgery might be the best treatment option. We called Dr. Whyte of cardiovascular surgical services at [facility] and have asked him to see the patient in consultation to see if coronary artery bypass surgery would be appropriate for him. Job ID: [id number] DocumentID: [id number] Dictated Date: 02/26/2022 10:51:34 Burner Tender Date: 02/26/2022 11:15:15 Dictated By: BRONSON RUCKER MD, MA, FACP, FACC,
== END 2022-02-26 13:45 | disposition home or self-care (01) ==
LOC: CATH 06:44 → SDC 11:06 → CATH 13:45
PROVIDERS: ATTEND Internal Medicine Cardiovascular Disease
DX: T82.855A Stenosis of coronary artery stent, initial encounter (principal); I25.10 Atherosclerotic heart disease of native coronary artery without angina pectoris; I65.23 Occlusion and stenosis of bilateral carotid arteries; I25.118 Atherosclerotic heart disease of native coronary artery with other forms of angina pectoris; T50.995A Adverse effect of other drugs, medicaments and biological substances, initial encounter; G47.30 Sleep apnea, unspecified; R94.31 Abnormal electrocardiogram [ECG] [EKG]; R73.01 Impaired fasting glucose; R74.01 Elevation of levels of liver transaminase levels; E78.5 Hyperlipidemia, unspecified; E04.1 Nontoxic single thyroid nodule; Z98.890 Other specified postprocedural states; Z90.49 Acquired absence of other specified parts of digestive tract
CPT/HCPCS: 80053; 80061; 85027; 85610; 85730; 87081; 93005; 93458; C1894; 36415

== ENCOUNTER 2022-06-10 04:40 | Emergency (ER) | payer MEDICARE ==
[~2022-06-10] VITALS: Ht 185.4 cm; Wt 100.0 kg
[~2022-06-10 04:40] MED LIST changes: +CETI10TA17 PO
[2022-06-10 05:06] LABS: BASOPHILS % (AUTO) 1 % (0-10); EOSINOPHILS # (AUTO) 0.1 10^3/uL (0.0-0.3); EOSINOPHILS % (AUTO) 2 % (0-10); HEMATOCRIT 46 % (40-54); HEMOGLOBIN 15.9 g/dL (13.3-17.7); LYMPHOCYTES # (AUTO) 1.6 10^3/uL (1.0-4.0); LYMPHOCYTES % (AUTO) 29 % (12-44); MEAN CORPUSCULAR HEMOGLOBIN 33 pg (25-34); MEAN CORPUSCULAR HGB CONC 35 g/dL (32-36); MEAN CORPUSCULAR VOLUME 94 fL (80-99); MEAN PLATELET VOLUME 10.7 fL (9.0-12.2); MONOCYTES # (AUTO) 0.5 10^3/uL (0.0-1.0); MONOCYTES % (AUTO) 9 % (0-12); NEUTROPHILS # (AUTO) 3.2 10^3/uL (1.8-7.8); NEUTROPHILS % (AUTO) 58 % (42-75); PLATELET COUNT 141 10^3/uL (130-400); WHITE BLOOD COUNT 5.5 10^3/uL (4.3-11.0)
[2022-06-10 05:18] LABS: ALBUMIN 4.1 GM/DL (3.2-4.5)
[2022-06-10 05:19] LABS: POTASSIUM 3.9 MMOL/L (3.6-5.0); PROTHROMBIN TIME PATIENT 13.7 SEC (12.2-14.7)
[2022-06-10 05:20] LABS: CALCIUM 9.4 MG/DL (8.5-10.1)
[2022-06-10 05:21] LABS: TOTAL PROTEIN 7.2 GM/DL (6.4-8.2)
[2022-06-10 05:23] LABS: BILIRUBIN,TOTAL 0.8 MG/DL (0.1-1.0)
[2022-06-10 05:25] LABS: CREATININE SERUM 1.07 MG/DL (0.60-1.30)
[2022-06-10 05:27] LABS: MAGNESIUM 1.9 MG/DL (1.6-2.4)
--- NOTE | 2022-06-10 05:35 | ED Chest Pain ---
General Chief Complaint: Chest Wall Stated Complaint: WEAKNESS Nursing Triage Note: PT ARRIVAL TO ER WITH COMPLAINT OF WEAKNESS, AND FEELING SHAKY. PT STATES THAT SHE WOKE UP TO PRESSURE IN CHEST THAT DIDN'T LAST LONG. PT STATES THAT HE FELT SHORT OF BREATH AND WEAK. PT STATES THAT HE HAD HEART CATH AND [facility] DONE THIS PAST FRIDAY. PT DENIES PRESSURE IN CHEST AT THIS TIME. 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 PRESSURE WAS 4/10. Source: patient, family () (AURELIO PAL MD) History of Present Illness Date Seen by Provider: Jun 10, 2022 Time Seen by Provider: 05:18 Initial Comments Patient is an 81-year-old male who presents to the emergency department today with a chief complaint of waking up about 4 AM from sleep with shortness of breath. Patient states that he woke up at about 4 AM and had some epigastric discomfort. There was not specific chest pain, tightness heaviness or pressure. He felt weak and shaky. He woke up his and he took a sublingual nitroglycerin at about 415. This seems to have improved his symptoms. He most recently had a stent placed last week on Friday at [facility]. He has had multiple prior stents placed. No CABG. He is not a diabetic. He was started on 2 new medications with a goal of the 135 systolic blood pressure. He denies any recent illnesses such as fevers, chills, congestion or COVID complaints. He is fully vaccinated. No sick contacts at home. Had supper at about 3:00 yesterday evening. Currently asymptomatic resting comfortably room air sats 97%. Not tachycardic. All other review of systems reviewed and negative except as stated. Timing/Duration: 1-3 hours Severity/Quality: mild Location: epigastric Prior CP/Workup: cardiac cath NTG SL LEATHER GRAINER: Yes Associated Symptoms: shortness of breath (AURELIO PAL MD) Allergies and Home Medications Allergies Coded Allergies: Beta-Blockers (Beta-Adrenergic Bloc (Unverified Allergy, Unknown, 03/04/17) ALLERGY INFORMATION FROM [facility] ORDER FROM DR. HERNANDEZ Patient Home Medication List Home Medication List Reviewed: Yes (AURELIO PAL MD) Acetaminophen (Acetaminophen) 325 Mg Tablet, 650 MG PO Q6HR PRN for PAIN-MILD Prescribed by: BRONSON VALENZUELA on 04/08/18 1127 Aspirin (Aspirin EC) 81 Mg Tablet.dr, 81 MG PO HS, (Reported) Entered as Reported by: EVELIN ASHBY on 04/07/18 0853 Cetirizine HCl (Cetirizine HCl) 10 Mg Tablet, 10 MG PO DAILY PRN for allergies, (Reported) Entered as Reported by: YANI FULLER on 02/26/22 0744 Clopidogrel Bisulfate (Clopidogrel) 75 Mg Tablet, 75 MG PO DAILY Prescribed by: BRONSON VALENZUELA on 04/08/18 1127 Nitroglycerin (Nitroglycerin) 0.4 Mg Tab.subl, 0.4 MG SL UD PRN for CHEST PAIN, (Reported) Entered as Reported by: EVELIN ASHBY on 04/07/18 0853 [place] 3 Polyunsat Fatty Acids (Fish Oil 1,000 mg Capsule) 1,000 Mg Cap, 2,000 MG PO BID, (Reported) Entered as Reported by: EVELIN ASHBY on 04/07/18 0853 Ramipril (Ramipril) 2.5 Mg Capsule, 2.5 MG PO DAILY, (Reported) Entered as Reported by: EVELIN ASHBY on 04/07/18 0858 Simvastatin (Simvastatin) 10 Mg Tablet, 5 MG PO HS, (Reported) Entered as Reported by: EVELIN ASHBY on 04/07/18 0853 Review of Systems Review of Systems Constitutional: see HPI EENTM: No Symptoms Reported Respiratory: Shortness of Air Cardiovascular: No Symptoms Reported Gastrointestinal: Other (epigastric discomfort) Genitourinary: No Symptoms Reported Musculoskeletal: no symptoms reported Skin: no symptoms reported Psychiatric/Neurological: Anxiety (AURELIO PAL MD) All Other Systems Reviewed Negative Unless Noted: Yes (AURELIO PAL MD) Past Xcycrcm-Bhfgpp-Wzsbyk Hx Patient Social History Tobacco Use?: No Use of E-Cig and/or Vaping dev: No Substance use?: No Alcohol Use?: No Pt feels they are or have been: No (AURELIO PAL MD) Immunizations Up To Date Influenza Vaccine Up-to-Date: Yes; Up-to-Date COVID19 Vaccine [employer] Developer: DIEGO (AURELIO PAL MD) Past Medical History Coronary Stent, Gallbladder, Orthopedic Coronary Artery Disease, Heart Attack, High Cholesterol, Hypertension Reproductive Disorders: No Kidney Stones (AURELIO PAL MD) Physical Exam Vital Signs Vital Signs - First Documented 06/10/22 04:46 Temp 36.9 Pulse 81 Resp 20 B/P (MAP) 173/87 (115) Pulse Ox 95 O2 Delivery Room Air (TEO BUTLER MD) Vital Signs Capillary Refill : Less Than 3 Seconds (AURELIO PAL MD) Height, Weight, BMI Height: 6'1.00" Weight: 218lbs. 0.0oz. 98.752478ko; 29.00 BMI Method: General Appearance: No Apparent Distress, WD/WN HEENT: PERRL/EOMI Neck: Normal Inspection Respiratory: Lungs Clear, Normal Breath Sounds, No Accessory Muscle Use, No Respiratory Distress Cardiovascular: Regular Rate, Rhythm, Normal Peripheral Pulses (2+ radial bilaterally) Gastrointestinal: No Pulsatile Mass, Non Tender, Soft Extremity: Normal Capillary Refill, Normal Inspection, Normal Range of Motion, Non Tender, No Calf Tenderness, No Pedal Edema Neurologic/Psychiatric: Alert, Oriented x3, No Motor/Sensory Deficits, Normal Mood/Affect Skin: Normal Color, Warm/Dry (AURELIO PAL MD) Progress/Results/Core Measures Results/Orders Lab Results Laboratory Tests Test 06/10/22 04:59 06/10/22 08:50 Range/Units White Blood Count 5.5 4.3-11.0 10^3/uL Red Blood Count 4.84 4.30-5.52 10^6/uL Hemoglobin 15.9 13.3-17.7 g/dL Hematocrit 46 40-54 % Mean Corpuscular Volume 94 80-99 fL Mean Corpuscular Hemoglobin 33 25-34 pg Mean Corpuscular Hemoglobin Concent 35 32-36 g/dL Red Cell Distribution Width 13.0 10.0-14.5 % Platelet Count 141 130-400 10^3/uL Mean Platelet Volume 10.7 9.0-12.2 fL Immature Granulocyte % (Auto) 0 % Neutrophils (%) (Auto) 58 42-75 % Lymphocytes (%) (Auto) 29 12-44 % Monocytes (%) (Auto) 9 0-12 % Eosinophils (%) (Auto) 2 0-10 % Basophils (%) (Auto) 1 0-10 % Neutrophils # (Auto) 3.2 1.8-7.8 10^3/uL Lymphocytes # (Auto) 1.6 1.0-4.0 10^3/uL Monocytes # (Auto) 0.5 0.0-1.0 10^3/uL Eosinophils # (Auto) 0.1 0.0-0.3 10^3/uL Basophils # (Auto) 0.0 0.0-0.1 10^3/uL Immature Granulocyte # (Auto) 0.0 0.0-0.1 10^3/uL Prothrombin Time 13.7 12.2-14.7 SEC INR Comment 1.0 0.8-1.4 Activated Partial Thromboplast Time 37 H 24-35 SEC Sodium Level 138 135-145 MMOL/L Potassium Level 3.9 3.6-5.0 MMOL/L Chloride Level 105 98-107 MMOL/L Carbon Dioxide Level 21 21-32 MMOL/L Anion Gap 12 5-14 MMOL/L Blood Urea Nitrogen 18 7-18 MG/DL Creatinine 1.07 0.60-1.30 MG/DL Estimat Glomerular Filtration Rate 69 BUN/Creatinine Ratio 17 Glucose Level 118 H 70-105 MG/DL Calcium Level 9.4 8.5-10.1 MG/DL Corrected Calcium 9.3 8.5-10.1 MG/DL Magnesium Level 1.9 1.6-2.4 MG/DL Total Bilirubin 0.8 0.1-1.0 MG/DL Aspartate Amino Transf (AST/SGOT) 34 5-34 U/L Alanine Aminotransferase (ALT/SGPT) 33 0-55 U/L Alkaline Phosphatase 88 40-136 U/L Myoglobin 48.7 10.0-92.0 NG/ML Troponin I 0.117 H 0.099 H <0.028 NG/ML B-Type Natriuretic Peptide 52.2 <100.0 PG/ML Total Protein 7.2 6.4-8.2 GM/DL Albumin 4.1 3.2-4.5 GM/DL Influenza Type A (RT-PCR) Not Detected Not Detecte Influenza Type B (RT-PCR) Not Detected Not Detecte SARS-CoV-2 RNA (RT-PCR) Not Detected Not Detecte (TEO BUTLER MD) My Orders Orders - TEO BUTLER MD Troponin I Haley (7/25/22 08:00) Covid 19 Inhouse Test (06/10/22 07:26) Influenza A And B By Pcr (06/10/22 07:26) (TEO BUTLER MD) Vital Signs/I&O 06/10/22 06/10/22 04:46 12:10 Temp 36.9 Pulse 81 70 Resp 20 B/P (MAP) 173/87 (115) 132/74 Pulse Ox 95 95 O2 Delivery Room Air Room Air (TEO BUTLER MD) Blood Pressure Mean: 115 Progress Progress Note : Progress Note 4-hour troponin was negative. Patient had no further chest pain or shortness of breath. I discussed the situation with Dr. Carbone who was on-call for cardiology. He recommended that the patient have follow-up soon as possible with Dr. Valenzuela and that he use nitroglycerin in the usual fashion if he has recurrent chest pain. Patient stated that he did use 1 dose of nitroglycerin and that seemed to improve his symptoms prior to coming to the ER. He did not receive any further doses of nitroglycerin this morning. See discharge instructions for further discussion. I did arrange for an expedited follow-up appointment with Anjelica at Dr. Valenzuela's clinic on June 26. (TEO BUTLER MD) Initial ECG Impression Date: Jun 10, 2022 Initial ECG Impression Time: 05:20 Initial ECG Rate: 72 Initial ECG Rhythm: Normal Sinus Initial ECG Intervals TN interval 185 QRS 140 QTC 460 Initial ECG Comparisson: Unchanged Comment EKG basically unchanged from prior in the system in February of this year. His QTC is slightly prolonged, QRS is widened at 140. No ST segment elevation or depre ssion is noted, no ectopy is noted. (AURELIO PAL MD) Diagnostic Imaging Diagonstic Imaging: Xray Plain Films/CT/US/NM/MRI: chest Comments [facility]. [place], [place] NAME: KAILEE [facility] REC#: [id number] PT STATUS: REG ER : 1940 PHYSICIAN: AURELIO PAL MD ADMIT DATE: 06/10/22/ER Signed Date of Exam:06/10/22 CHEST 1 VIEW, AP/PA ONLY Indication: Chest pain Portable chest 5:37 AM Heart size and pulmonary vascularity are normal. Lungs are clear. There are no effusions or pneumothoraces. IMPRESSION: No acute abnormalities the chest Dictated by: Dictated on workstation # [id number] Dict: 06/10/22538 Trans: 06/10/22538 TCB [id number] Interpreted by: CHRISTY REED MD Electronically signed by: CHRISTY REED MD 06/10/22538 (AURELIO PAL MD) Departure Impression Primary Impression: Chest pain Qualified Codes: R07.9 - Chest pain, unspecified Additional Impressions: Shortness of breath Coronary artery disease Qualified Codes: I25.10 - Atherosclerotic heart disease of [place] coronary artery without angina pectoris Disposition: HOME, SELF-CARE Condition: Stable Departure-Patient Inst. Decision time for Depature: 11:45 (TEO BUTLER MD) Referrals: NICK GANDARA DO (PCP/Family) Primary Care Physician Patient Instructions: Chest Pain Add. Discharge Instructions: You have a follow-up appointment with Anjelica at Dr. Valenzuela's office on June 26 at 10:20. Please call their office if that appointment time does not work for you. Continue your medications as previously prescribed. If chest pain returns, you may take nitroglycerin. Repeat every 5 minutes for a maximum of 5 doses if chest pain persists. If 3 doses of nitroglycerin did not resolve your pain, please immediately return to the emergency room or call 911. Call with questions or concerns. Return to the emergency room if you have any other problems or concerns. All discharge instructions reviewed with patient and/or family. Voiced understanding. Copy Copies To 1: BRONSON VALENZUELA MD FACP FAC CCDS Copies To 2: NICK GANDARA KATHRYN M MD Jun 10, 2022 05:35 TEO BUTLER MD Jun 10, 2022 11:42
--- NOTE | 2022-06-10 05:40 | Diagnostic Imaging Report ---
Indication: Chest pain Portable chest 5:37 AM Heart size and pulmonary vascularity are normal. Lungs are clear. There are no effusions or pneumothoraces. IMPRESSION: No acute abnormalities the chest Dictated by: Dictated on workstation # [id number]
[2022-06-10 12:10] VITALS: BP 132/74
== END 2022-06-10 12:10 | disposition home or self-care (01) ==
LOC: EDUNIT# 04:40 → ER 04:41
DX: I25.10 Atherosclerotic heart disease of native coronary artery without angina pectoris (principal); I10 Essential (primary) hypertension; Z20.822 Contact with and (suspected) exposure to COVID-19; Z79.899 Other long term (current) drug therapy
CPT/HCPCS: 36415; 71045; 80053; 83735; 83874; 83880; 84484; 85025; 85610; 85730; 87636; 93005; 93041